=== PATIENT | female | born 1945 | race African-American/Black ===

== ENCOUNTER 2023-05-06 13:49 | Inpatient (IN) | payer OTHER, MEDICAID ==
[~2023-05-06] VITALS: Ht 167.6 cm; Wt 65.3 kg
[2023-05-06 14:18] VITALS: BP 170/96; PULSE 89; RESP 20; TEMP 98; O2SAT 98
[2023-05-06] MEDS ORDERED: LIDOCAINE 5% 1 EA PATCH TP SCH (15:25)
[2023-05-06] MEDS ORDERED: MORPHINE SULFATE 4 MG/ML SYR IVP ONE (15:25)
[2023-05-06] MEDS ORDERED: ONDANSETRON 4 MG/2 ML VIAL IVP ONE (15:25)
[2023-05-06 15:30] VITALS: O2SAT 100
[2023-05-06 15:44] LABS: BASOPHILS # (AUTO) 0.1 K/uL (0.00-0.22); BASOPHILS % (AUTO) 0.5 % (0.0-2.0); EOSINOPHILS # (AUTO) 0.1 K/uL (0-0.4); EOSINOPHILS % (AUTO) 0.7 % (0.0-4.0); HEMATOCRIT 37.4 % (36-48); HEMOGLOBIN 12.7 g/dL (12.0-16.0); LYMPHOCYTES # (AUTO) 1.9 K/uL (2.5-16.5); LYMPHOCYTES % (AUTO) 17.8 % (20.5-51.1); MEAN CORPUSCULAR HEMOGLOBIN 32 pg (27-31); MEAN CORPUSCULAR HGB CONC 34 g/dL (33-37); MEAN CORPUSCULAR VOLUME 92.7 fL (80-94); MONOCYTES # (AUTO) 0.8 K/uL (0.8-1.0); MONOCYTES % (AUTO) 7.9 % (1.7-9.3); NEUTROPHILS # (AUTO) 7.7 K/uL (1.8-7.7); NEUTROPHILS % (AUTO) 73.1 % (42.2-75.2); PLATELET COUNT (AUTO) 392 K/uL (140-450); RED BLOOD CELL COUNT(AUTO) 4.04 MIL/uL (4.20-5.40); RED CELL DISTRIBUTION WIDTH 12.5 % (11.6-13.7); WHITE BLOOD COUNT (AUTO) 10.6 K/uL (4.8-10.8)
[2023-05-06] MEDS: BACLOFEN 10 MG TAB PO SCH ×2 (15:55→16:03)
[2023-05-06 15:58] LABS: ALANINE AMINOTRANSFERASE 18 U/L (12-78); ALKALINE PHOSPHATASE 76 U/L (50-136); ANION GAP 11.7 (8-16); ASPARTATE AMINOTRANSFERASE 14 U/L (15-37); CALCIUM 10.4 mg/dL (8.5-10.1); CARBON DIOXIDE 29.1 mmol/L (21-32); CHLORIDE 100 mmol/L (98-107); CREATINE KINASE, TOTAL 30 U/L (26-192); GLUCOSE 105 mg/dL (74-106); LIPASE 15 U/L (16-77); SODIUM SERUM 138 mmol/L (136-145); TOTAL BILIRUBIN 0.4 mg/dL (0.0-1.0); TOTAL PROTEIN, SERUM 8.1 g/dL (6.4-8.2); UREA NITROGEN, BLOOD 12 mg/dL (7-18)
[2023-05-06 16:00] LABS: POTASSIUM 2.8 mmol/L (3.5-5.1)
[2023-05-06 16:03] LABS: INR 0.92 (0.8-1.2); PARTIAL THROMBOPLASTIN TIME 30.2 secs (22-35.6); PROTHROMBIN TIME 9.7 secs (10.8-13.4)
[2023-05-06] MEDS ORDERED: POTASSIUM CHLORIDE 10 MEQ TABER PO ONE ×3 (16:05→21:50)
[2023-05-06] MEDS ORDERED: POTASSIUM CHL 20 MEQ/NACL 0.9% 1,000 ML IV ONE (16:05)
[2023-05-06] MEDS ORDERED: fentaNYL citrate 0.05 MG/ML VIAL IVP ONE (16:25)
[2023-05-06] MEDS ORDERED: HYDROmorphone PFS 2 MG/ML SYR IVP ONE (17:45)
[2023-05-06 18:33] LABS: APPEARANCE,URINE CLEAR (CLEAR); BILIRUBIN,URINE NEGATIVE (NEGATIVE); BLOOD, URINE NEGATIVE (NEGATIVE); COLOR,URINE YELLOW (YELLOW); LEUKOCYTE ESTERASE ,URINE TRACE (NEGATIVE); NITRITE, URINE NEGATIVE (NEGATIVE); PH,URINE 6.5 (5.0-9.0); PROTEIN,URINE TRACE (NEGATIVE); UGLUCOSE NEGATIVE (NEGATIVE); UROBILINOGEN,URINE 0.2 EU/dL (0.2 - 1)
[2023-05-06 18:43] LABS: RBC,URINE 0-5 /HPF (0-5)
[2023-05-06 18:44] LABS: BACTERIA,URINE FEW /HPF (None Seen); SQUAMOUS EPITHELIAL CELL,UR 0-3 (FEW) /LPF (0-3 (FEW))
[2023-05-06] MEDS ORDERED: HYDROcodone/APAP 5/325 MG 1 TAB TAB PO PRN (19:30)
[2023-05-06] MEDS ORDERED: ONDANSETRON 4 MG/2 ML VIAL IVP PRN (19:30)
[2023-05-06] MEDS ORDERED: ALBUTEROL 0.083% 2.5 MG/3 ML NEBU INH PRN (19:30)
[2023-05-06] MEDS ORDERED: LORazepam 2 MG/ML VIAL IVP PRN (19:30)
[2023-05-06] MEDS ORDERED: hydrALAZINE 20 MG/ML VIAL IVP PRN (20:55)
[2023-05-06] MEDS ORDERED: SPIRONOLACTONE 50 MG TAB PO ONE (21:00)
[2023-05-06] MEDS: HYDROmorphone 1 MG/ML AMP IVP PRN (21:55)
[2023-05-06] MEDS: GABAPENTIN 300 MG CAP PO SCH (21:57)
[2023-05-06 22:28] VITALS: BP 154/66; PULSE 72; RESP 18; TEMP 98.6; O2SAT 100
[2023-05-06] MEDS: methocarbamoL 500 MG TAB PO SCH (22:44)
[2023-05-06] MEDS: SPIRONOLACTONE 50 MG TAB PO SCH (22:45)
[2023-05-07 04:00] VITALS: BP 184/85; PULSE 87; RESP 16; TEMP 97.7; O2SAT 99
[2023-05-07] MEDS: HYDROmorphone 1 MG/ML AMP IVP PRN ×3 (04:08→15:23)
[2023-05-07] MEDS: methocarbamoL 500 MG TAB PO SCH ×3 (04:09→22:41)
[2023-05-07 06:03] LABS: ANION GAP 9.6 (8-16); BASOPHILS # (AUTO) 0.1 K/uL (0.00-0.22); BASOPHILS % (AUTO) 0.7 % (0.0-2.0); CALCIUM 10.2 mg/dL (8.5-10.1); CARBON DIOXIDE 29.4 mmol/L (21-32); CHLORIDE 107 mmol/L (98-107); CREATININE 0.7 mg/dL (0.6-1.3); EOSINOPHILS # (AUTO) 0.1 K/uL (0-0.4); EOSINOPHILS % (AUTO) 0.8 % (0.0-4.0); GLUCOSE 95 mg/dL (74-106); HEMATOCRIT 34.8 % (36-48); LYMPHOCYTES # (AUTO) 2.5 K/uL (2.5-16.5); LYMPHOCYTES % (AUTO) 25.5 % (20.5-51.1); MEAN CORPUSCULAR HEMOGLOBIN 33 pg (27-31); MEAN CORPUSCULAR HGB CONC 35 g/dL (33-37); MEAN CORPUSCULAR VOLUME 94.6 fL (80-94); MONOCYTES # (AUTO) 0.7 K/uL (0.8-1.0); MONOCYTES % (AUTO) 7.6 % (1.7-9.3); NEUTROPHILS # (AUTO) 6.4 K/uL (1.8-7.7); NEUTROPHILS % (AUTO) 65.4 % (42.2-75.2); PLATELET COUNT (AUTO) 351 K/uL (140-450); RED BLOOD CELL COUNT(AUTO) 3.68 MIL/uL (4.20-5.40); RED CELL DISTRIBUTION WIDTH 12.5 % (11.6-13.7); SODIUM SERUM 142 mmol/L (136-145); UREA NITROGEN, BLOOD 9 mg/dL (7-18); WHITE BLOOD COUNT (AUTO) 9.7 K/uL (4.8-10.8)
[2023-05-07 08:00] VITALS: BP 145/76; PULSE 71; RESP 18; TEMP 97.6; O2SAT 99
[2023-05-07] MEDS ORDERED: NIFEdipine 60 MG TABER PO SCH (09:00)
[2023-05-07] MEDS: GABAPENTIN 300 MG CAP PO SCH ×2 (09:27→22:42)
[2023-05-07] MEDS: SPIRONOLACTONE 50 MG TAB PO SCH ×2 (09:27→22:42)
[2023-05-07] MEDS: traMADol 50 MG TAB PO PRN ×2 (11:55→17:06)
[2023-05-07 12:00] VITALS: RESP 18
[2023-05-07 14:27] VITALS: O2SAT 97
[2023-05-07 16:00] VITALS: BP 124/66; PULSE 76; RESP 18; TEMP 98.6; O2SAT 99
[2023-05-07] MEDS: POLYETHYLENE GLYCOL 17 GM/PKT PO SCH (17:05)
[2023-05-07] MEDS: DOCUSATE SODIUM 100 MG GELCAP PO SCH (17:06)
[2023-05-07 20:00] VITALS: PULSE 70; RESP 18; O2SAT 99
[2023-05-08] VITALS: BP 130/67; PULSE 70; RESP 18; TEMP 98.5; O2SAT 99
[2023-05-08] MEDS: HYDROmorphone 1 MG/ML AMP IVP PRN ×2 (04:48→09:09)
[2023-05-08 06:52] LABS: ANION GAP 14.1 (8-16); CALCIUM 10.7 mg/dL (8.5-10.1); CARBON DIOXIDE 26.7 mmol/L (21-32); CHLORIDE 104 mmol/L (98-107); CREATININE 0.8 mg/dL (0.6-1.3); GLUCOSE 104 mg/dL (74-106); POTASSIUM 3.8 mmol/L (3.5-5.1); SODIUM SERUM 141 mmol/L (136-145); UREA NITROGEN, BLOOD 9 mg/dL (7-18)
[2023-05-08] MEDS: methocarbamoL 500 MG TAB PO SCH ×2 (06:59→14:12)
[2023-05-08 08:00] VITALS: BP 138/83; PULSE 97; RESP 18; TEMP 97.2; O2SAT 98
[2023-05-08] MEDS ORDERED: amLODIPine 5 MG TAB PO SCH (09:00)
[2023-05-08] MEDS: POLYETHYLENE GLYCOL 17 GM/PKT PO SCH (09:05)
[2023-05-08] MEDS: SPIRONOLACTONE 50 MG TAB PO SCH (09:05)
[2023-05-08] MEDS: DOCUSATE SODIUM 100 MG GELCAP PO SCH (09:06)
[2023-05-08] MEDS: GABAPENTIN 300 MG CAP PO SCH (09:06)
[2023-05-08] MEDS ORDERED: AMLO5TAB PO ×2 (12:29→17:24)
[2023-05-08] MEDS ORDERED: SPIR50TA PO (12:30)
[2023-05-08] MEDS ORDERED: GABA300C PO ×2 (12:31→17:31)
[2023-05-08] MEDS ORDERED: METH-1681 PO ×2 (12:33→17:31)
[2023-05-08 15:22] VITALS: BP 138/83; PULSE 97; RESP 18; TEMP 97.2
[2023-05-08] MEDS ORDERED: SPIR50TA4 PO (17:26)
== END 2023-05-08 16:35 | disposition home health service (06) | DRG 552 ==
LOC: MED 13:49 → MTU 19:26
PROVIDERS: ADMIT Internal Medicine; ATTEND Internal Medicine
DX: M51.36 Other intervertebral disc degeneration, lumbar region (principal); M54.59 Other low back pain; M47.816 Spondylosis without myelopathy or radiculopathy, lumbar region; I10 Essential (primary) hypertension; E83.52 Hypercalcemia; E87.6 Hypokalemia; R10.2 Pelvic and perineal pain; N28.1 Cyst of kidney, acquired; Z88.5 Allergy status to narcotic agent
CPT/HCPCS: 36415; 72131; 80048; 80053; 81001; 82550; 83690; 83735; 84484; 85025; 85610; 85651; 85730; 86140; 87040; 87081; 87086; 93005; 96374; 96375; 97163-GP; 97530; 99285; J1170; J2270; J2405; J3010; J7030